=== PATIENT | male | born 1970 | race Caucasian/White ===

== ENCOUNTER 2022-08-11 07:38 | Day surgery (SDC) | payer OTHER ==
[~2022-08-11] VITALS: Ht 189 cm; Wt 100.8 kg
[2022-08-11] VITALS (14 sets, daily range): BP systolic 95–131; BP diastolic 61–92
[~2022-08-11 07:38] MED LIST: ASPI81EC; CARV3.125; ERGO50000; Lisinopril2.5 MG; METF500; NITR.1TP; OMEP20ER; PRAVASTATIN SOD10 MG
--- NOTE | 2022-08-11 08:39 | NUR ---
08/11/22 0839 Kayy Michaels HISTORY, CHART, MEDICATIONS AND ALLERGIES REVIEWED BEFORE START OF PROCEDURE. PATIENT CONFIRMS NPO STATUS AND AGREES WITH SCHEDULED PROCEDURE. 3-LEAD EKG REVIEWED WITH PHYSICIAN PRIOR TO START OF PROCEDURE. MONITOR INTACT WITH CONTINUOUS PULSE OXIMETRY,CAPNOGRAPHY, 3-LEAD EKG, INTERMITTENT BP. SUPPLEMENTAL O2 TO BE TITRATED THROUGHOUT PROCEDURE TO MAINTAIN O2 SATURATION ABOVE 90%. PATIENT DETERMINED TO BE ASA APPROPRIATE FOR PROPOFOL SEDATION PRIOR TO START OF PROCEDURE BY DR. HUSSEIN. MEDICATION ADMINISTRATION BY ORD.NCP, CHARTING COMPLETED BY ORD.ERF.
--- NOTE | 2022-08-11 09:35 | NUR ---
Discharge instructions reviewed with patient. Patient verbalizes understanding. Copy given to patient to take home. Discharged via wheelchair to private car for ride home.
== END 2022-08-11 09:38 | disposition home or self-care (01) ==
LOC: ORSCMMR 07:38 → ORD 08:00 → ORSCMMR 08:00
PROVIDERS: Internal Medicine Gastroenterology
PROC: 0DJD8ZZ Inspection of Lower Intestinal Tract, Via Natural or Artificial Opening Endoscopic (ICD-10-PCS; principal; 2022-08-11 08:00)
DX: Z12.11 Encounter for screening for malignant neoplasm of colon (principal); D12.3 Benign neoplasm of transverse colon; I25.2 Old myocardial infarction; E11.9 Type 2 diabetes mellitus without complications; F17.210 Nicotine dependence, cigarettes, uncomplicated; Z79.84 Long term (current) use of oral hypoglycemic drugs; Z79.82 Long term (current) use of aspirin; Z79.899 Other long term (current) drug therapy
CPT/HCPCS: 82947; 88305; J2704; J7120